=== PATIENT | male | born 1980 | race Caucasian/White ===

== ENCOUNTER 2018-03-27 14:39 | Emergency (ER) | payer SELFPAY, MEDICAID ==
[2018-03-27] MEDS: HYDROCODONE/APAP (5/325) TAB PO (15:03)
[2018-03-27] MEDS: LIDOCAINE 1% (MDV) 10 ML INJ INJ (15:04)
== END 2018-03-27 15:50 | disposition home or self-care (01) ==
LOC: FTE 14:39
DX: M25.562 Pain in left knee (principal)
CPT/HCPCS: 73562; 99283-25

== ENCOUNTER 2018-10-23 18:56 | Emergency (ER) | payer MEDICAID ==
[2018-10-23] MEDS: KETOROLAC 15 MG INJ IM (23:24)
== END 2018-10-23 23:47 | disposition home or self-care (01) ==
LOC: FTE 18:56
DX: R10.31 Right lower quadrant pain (principal)
CPT/HCPCS: 74176; 96372; 99285-25